=== PATIENT | female | born 1995 | race African-American/Black ===

== ENCOUNTER 2017-08-20 20:00 | Emergency (ER) | payer MEDICAID ==
[~2017-08-20] VITALS: Ht 157.5 cm; Wt 50.0 kg
[2017-08-20 22:26] VITALS: BP 120/68
== END 2017-08-20 22:26 | disposition home or self-care (01) ==
LOC: ER 20:37
DX: J95.03 Malfunction of tracheostomy stoma (principal); G80.9 Cerebral palsy, unspecified; Z93.1 Gastrostomy status; Y83.8 Other surgical procedures as the cause of abnormal reaction of the patient, or of later complication, without mention of misadventure at the time of the procedure; Y92.018 Other place in single-family (private) house as the place of occurrence of the external cause
CPT/HCPCS: 71045; 99284